=== PATIENT | male | born 1945 | race Caucasian/White ===

== ENCOUNTER 2021-07-13 03:25 | Emergency (ER) | payer OTHER ==
[~2021-07-13] VITALS: Ht 170.2 cm; Wt 83.0 kg
[2021-07-13 04:38] LABS: ABSOLUTE NEUTROPHILS 4.5 thou/uL (1.4-8.2); BASOPHILS 1.2 % (0.0-2.0); EOSINOPHILS 5.7 % (0.0-3.0); HEMATOCRIT 40.5 % (42.0-52.0); HEMOGLOBIN 13.5 gm/dL (14.0-18.0); LYMPHOCYTES 19.6 % (24.0-44.0); MCH 29.2 pg (26.0-34.0); MCHC 33.3 g/dL (28.0-37.0); MCV 87.7 fL (80.0-100.0); MONOCYTES 6.2 % (1.0-8.0); PLATELET COUNT 193 thou/uL (150-400); POLYS 67.3 % (36.0-66.0); RBC 4.62 mil/uL (4.50-6.00); RDW 13.8 % (10.5-14.5); WBC 6.6 thou/uL (4.0-11.0)
[2021-07-13 05:00] LABS: CALCIUM 9.3 mg/dL (8.5-10.1); CREATININE 0.8 mg/dL (0.7-1.3)
[2021-07-13 05:04] LABS: POTASSIUM 4.1 mmol/L (3.5-5.1)
[2021-07-13 05:38] VITALS: BP 144/84
--- NOTE | 2021-07-13 09:49 | EKG ---
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 : 1945 Requested By: Delmar Atkins Order Number: [id number] MD: Eric Boyer Measurements Intervals Harmon Rate: 54 P: 24 WV: 210 QRS: -14 QRSD: 99 T: 5 QT: 460 QTc: 436 Interpretive Statements Sinus bradycardia Abnormal R-wave progression, early transition Borderline T abnormalities, inferior leads Compared to ECG 07/20/2000 23:59:13 No significant change was found Electronically Signed On 07-13-2021 9:49:50 LOKIE ENGINEER by Eric Boyer [email or web address] <ELECTRONICALLY SIGNED> By: Eric Boyer MD, [facility] 07/13/21 0949 [id number] Eric Boyer MD, FACC /EPI
== END 2021-07-13 05:35 | disposition short-term general hospital (02) ==
LOC: ER 03:25
PROVIDERS: Student in an Organized Health Care Education/Training Program
DX: S06.5X0A Traumatic subdural hemorrhage without loss of consciousness, initial encounter (principal); Z20.822 Contact with and (suspected) exposure to COVID-19; S00.03XA Contusion of scalp, initial encounter; R55 Syncope and collapse; Z88.0 Allergy status to penicillin; W18.11XA Fall from or off toilet without subsequent striking against object, initial encounter; Y93.89 Activity, other specified; Y92.89 Other specified places as the place of occurrence of the external cause; Y99.8 Other external cause status

== ENCOUNTER 2021-09-01 23:32 | Inpatient (IN) | payer OTHER ==
[~2021-09-01] VITALS: Ht 170.2 cm; Wt 71.7 kg
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
[2021-09-01 23:35] VITALS: BP 172/74
[2021-09-02 03:28] LABS: ABSOLUTE NEUTROPHILS 7.3 thou/uL (1.4-8.2); BASOPHILS 0.7 % (0.0-2.0); EOSINOPHILS 2.6 % (0.0-3.0); HEMATOCRIT 40.2 % (42.0-52.0); HEMOGLOBIN 13.5 gm/dL (14.0-18.0); LYMPHOCYTES 15.6 % (24.0-44.0); MCH 29.2 pg (26.0-34.0); MCHC 33.5 g/dL (28.0-37.0); MCV 87.1 fL (80.0-100.0); MONOCYTES 6.3 % (1.0-8.0); PLATELET COUNT 165 thou/uL (150-400); POLYS 74.8 % (36.0-66.0); RBC 4.62 mil/uL (4.50-6.00); RDW 14.6 % (10.5-14.5); WBC 9.7 thou/uL (4.0-11.0)
[2021-09-02 03:35] LABS: CALCIUM 9.1 mg/dL (8.5-10.1); CREATININE 0.9 mg/dL (0.7-1.3); POTASSIUM 3.7 mmol/L (3.5-5.1)
[2021-09-02 03:43] LABS: APTT 28.7 Seconds (24.5-32.8); INR 1.09; PROTIME 11.8 Seconds (10.5-12.1)
[2021-09-02] MEDS ORDERED: BACLOFEN 10MG T10 MG PO ×2 (09:57→09:59)
[2021-09-02] MEDS ORDERED: COLACE100 MG PO (10:01)
[2021-09-02] MEDS ORDERED: DULOXETINE HCL30 MG PO (10:02)
[2021-09-02] MEDS ORDERED: FAMOTIDINE 20 M20 MG PO (10:03)
[2021-09-02] MEDS ORDERED: SLOW FE142 MG PO (10:05)
[2021-09-02] MEDS ORDERED: HYDROCODON-ACE1 EAC7 PO (10:07)
[2021-09-02] MEDS ORDERED: KEPPRA750 MG PO (10:17)
[2021-09-02] MEDS ORDERED: REFRESH CLASSI1 EACH LT. EYE (10:41)
[2021-09-02] MEDS ORDERED: PREGABALIN75 MG PO (10:42)
[2021-09-02] MEDS ORDERED: REFRESH LACRI-3.5 GM LT. EYE (10:44)
[2021-09-02] MEDS ORDERED: MIRALAX119 GM PO (10:50)
[2021-09-02] MEDS ORDERED: SUPER THERAVIT1 EACH PO (10:51)
[2021-09-02 11:30] VITALS: BP 112/70
[2021-09-02 14:01] LABS: FOLIC ACID 19.1 ng/mL (8.6-58.9)
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
[2021-09-02 16:20] VITALS: BP 119/65
[2021-09-02 21:19] VITALS: BP 116/80
[2021-09-02 22:09] VITALS: BP 137/81
[2021-09-02] MEDS ORDERED: ACETAMINOPHEN500 M1 (22:19)
[2021-09-02] MEDS ORDERED: HYDROCORTISONE30 GM TOP (22:21)
[2021-09-02] MEDS ORDERED: ACIDOPHILUS LA1 EAC1 PO (22:23)
[2021-09-02] MEDS ORDERED: OXYCODONE HCL5 M1 (22:26)
[2021-09-03 03:02] VITALS: BP 116/69
--- NOTE | 2021-09-03 03:46 | NUR ---
PT ARRIVED VIA CART FROM ER. PT HAS RECENT FALL HX AND PREVIOUS VISITS TO ER DUE TO FALLS. ADMISSION COMPLETED, MED REC FINISHED, AND CAREPLAN IN PLACE. PT HAS LACERATION ABOVE LEFT EYE WITH SUTURES. PAIN MANAGEMENT WAS POC FOR EVENING.
[2021-09-03 04:31] LABS: ABSOLUTE NEUTROPHILS 3.5 thou/uL (1.4-8.2); BASOPHILS 0.6 % (0.0-2.0); EOSINOPHILS 4.9 % (0.0-3.0); HEMATOCRIT 36.9 % (42.0-52.0); HEMOGLOBIN 12.4 gm/dL (14.0-18.0); LYMPHOCYTES 29.2 % (24.0-44.0); MCH 29.5 pg (26.0-34.0); MCHC 33.7 g/dL (28.0-37.0); MCV 87.8 fL (80.0-100.0); MONOCYTES 8.3 % (1.0-8.0); PLATELET COUNT 150 thou/uL (150-400); RDW 14.8 % (10.5-14.5); WBC 6.1 thou/uL (4.0-11.0)
[2021-09-03 07:00] VITALS: BP 117/71
[2021-09-03 07:22] LABS: CALCIUM 8.3 mg/dL (8.5-10.1); CREATININE 0.8 mg/dL (0.7-1.3); POTASSIUM 3.9 mmol/L (3.5-5.1)
[2021-09-03 11:00] VITALS: BP 86/60
[2021-09-03 15:00] VITALS: BP 99/56
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
--- NOTE | 2021-09-03 16:20 | NUR ---
I have reviewed the documentation by DASIA KING from 09/03/21 to 09/03/21 and I concur with it. AMBROSE SANTOS, PT, DPT
[2021-09-03 20:22] VITALS: BP 110/61
[2021-09-04 03:35] VITALS: BP 106/58
--- NOTE | 2021-09-04 04:41 | NUR ---
PT IS A&OX4 AND ABLE TO COMMUNICATE WANTS AND NEEDS TO STAFF. ADAPTIVE CALL LIGHT IN PLACE R/T LIMITED MOBILITY-PT HAS HX OF TBI. PT REQUESTED EXTERNAL CATHETER PLACEMENT AT BEGINNING OF SHIFT, INTACT AND DRAINING THROUGHOUT SHIFT. PT WITH C/O R SIDED BACK/RIB PAIN, MEDICATED X1 WITH NORCO AND X1 WITH DILAUDID WITH GOOD RESULTS EACH TIME. PT ON CONTINUOUS PULSE OXIMETRY, NOTED TO DESAT TO 86-88% DURING DEEP SLEEP. NASAL CANNULA PLACED AT 2L, MAINTAINING SATS >92% SINCE. VSS THROUGHOUT SHIFT OTHERWISE. WILL CONTINUE TO OBSERVE FOR CHANGES
[2021-09-04 04:52] LABS: CALCIUM 8.9 mg/dL (8.5-10.1); CREATININE 0.9 mg/dL (0.7-1.3); POTASSIUM 3.9 mmol/L (3.5-5.1)
[2021-09-04 05:25] LABS: BASOPHILS 0.6 % (0.0-2.0); EOSINOPHILS 6.1 % (0.0-3.0); HEMOGLOBIN 13.2 gm/dL (14.0-18.0); LYMPHOCYTES 28.1 % (24.0-44.0); MONOCYTES 8.6 % (1.0-8.0); PLATELET COUNT 139 thou/uL (150-400); POLYS 56.6 % (36.0-66.0); RBC 4.54 mil/uL (4.50-6.00); RDW 14.6 % (10.5-14.5); WBC 7.1 thou/uL (4.0-11.0)
[2021-09-04 09:02] VITALS: BP 105/63
[2021-09-04] MEDS ORDERED: PREDNISOLONE ACE5 ML LT. EYE (11:49)
[2021-09-04] MEDS ORDERED: ARTIFICIAL TEAR1510 OPHTHALMIC (11:49)
[2021-09-04 12:33] VITALS: BP 103/58
--- NOTE | 2021-09-04 14:24 | NUR ---
I have reviewed the documentation by LORNA NELSON from 09/04/2021 to 09/04/21 and I concur with it. FREDDIE PRECIADO PT, DPT
[2021-09-04 16:00] VITALS: BP 118/73
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
--- NOTE | 2021-09-04 17:19 | NUR ---
Assumed care of pt at 0700. Pt reporting severe pain in R side where hip fractures are present. Also reporting chronic back pain. PO and IV pain medications given as needed, providing partial relief. Pt on continuous pulse oximetry on 2L nasal cannula. Lungs are clear and diminished. Difficult for patient to take deep breaths due to pain. Patient telemetry reads as 1st degree AV block/sinus bradycardia at times, especially when sleeping. Meds given per MAR, including eye drops. No concerns at this time.
[2021-09-04 20:45] VITALS: BP 134/79
[2021-09-05 04:45] VITALS: BP 119/76
[2021-09-05 07:16] VITALS: BP 107/70
--- NOTE | 2021-09-05 12:21 | NUR ---
Case discussed with the care team. Acute rehab declined pt recommending snf. BOP SNF can accept. No dc anticipated until early next week. Pt and his sister notified and agreeable to bop snf at [place].
--- NOTE | 2021-09-05 14:51 | NUR ---
Assumed care of pt this AM. Pt is oriented x4, drowsy. SR w/ 1AVB on the montir. Pt on 2L NC. Pt c/o 04/20 right side pain associated w/ rib fx. Dilaudid held as pt RR low this AM & pt reporting "difficulty breathing". PRN hydrocodone given as allowed. Multiple issues w/ condom cath today, pt up to toilet x 2 w/ walker. Min assistance but pt guidance through room. High fall precautions in place, pt calls appropriately.
--- NOTE | 2021-09-05 15:18 | NUR ---
I have reviewed the documentation by LORNA NELSON from 09/05/21 to 09/05/21 and I concur with it. DEMETRA SHELTON
[2021-09-05 15:23] VITALS: BP 120/77
[2021-09-05 19:25] VITALS: BP 133/74
[2021-09-06 03:08] VITALS: BP 117/77
--- NOTE | 2021-09-06 05:51 | NUR ---
PT CONTINUES TO MAKE SLOW PROGRESS TOWARD GOAL OF DISCHARGE. PLAN AT THIS TIME IS TO D/C TO [facility] EARLY NEXT WEEK FOR SKILLED REHAB. PT IS A&OX4 BUT FORGETFUL AND SOMETIMES SLOW TO RESPOND. VS HAVE BEEN STABLE THROUGHOUT THE SHIFT. HE CALLS APPROPRIATELY USING SOFT TOUCH ADAPTIVE CALL LIGHT TO GO TO THE BATHROOM; UP WITH GAIT BELT, WALKER, AND ASSIST X1. AT REST, PT DENIES PAIN, BUT ENDORSES RIGHT BACK/RIB PAIN WITH ANY MOVEMENT. SINUS BRADYCARDIA ON CARDIAC MONITORING. WILL CONTINUE TO MONITOR FOR CHANGES
[2021-09-06 07:00] VITALS: BP 122/75
[2021-09-06 16:45] VITALS: BP 127/78
[2021-09-06 19:04] VITALS: BP 110/71
[2021-09-07 03:28] VITALS: BP 122/88
--- NOTE | 2021-09-07 04:26 | NUR ---
RECIEVED THE PATIENT AT 1900H.ASSESSMEN TDONE CHARTED.MEDS GIVEN PER SEP.CALL APPROPRIATELY USING SOFT TOUCH ADAPTIVE CALL LIGHT.ALL NEEDS ATTENDED.TO CONTINOUSLY MONITOR.
[2021-09-07 07:25] VITALS: BP 126/74
[2021-09-07 15:20] VITALS: BP 100/65
[2021-09-07 19:40] VITALS: BP 108/58
[2021-09-08 03:27] VITALS: BP 123/68
--- NOTE | 2021-09-08 03:34 | NUR ---
RECEIVED THE PATIENT AT 1900H.ASSESSMENT DONE CHARTED.MEDS GIVEN PER SEP.CALLS APPROPRIATELY USING SOFT ADAPTIVE CALL LIGHT.ALL NEEDS ATTENDED.TO CONTINOUSLY MONITOR.
[2021-09-08 07:15] VITALS: BP 168/62
[2021-09-08] MEDS ORDERED: IPRAT-ALBUT 0.5-3 ML INH (13:00)
[2021-09-08] MEDS ORDERED: NYAMYC15 GM TOP (13:00)
[2021-09-08] MEDS ORDERED: LIDOCAINE1 EACH TRANSDERM (13:02)
[2021-09-08] MEDS ORDERED: MIRALAX119 GM PO (13:02)
--- NOTE | 2021-09-08 14:44 | NUR ---
CHART REVIEWED AND DISCUSSED WITH CARE TEAM. PT MEDICALLY STABLE TO DC THIS DAY. CM CALLED AND SPOKE TO BLAINE HUNTER AT [place] [facility] . SHE CONFIRMED BED AVAILABLE THIS DAY AND ARRANGED TRANSPORT VIA W/C VAN FOR 1500. CM FAXED DC ORDERS AND SUMMARY TO BLAINE. NURSING AWARE. CHART COPIED. CM CALLED AND SPOKE TO PTS SISTER KISHORE AND MADE AWARE OF PT DC AND TRANSFER. NO FUTHER CM INTERVENTIONS INDICATED.
--- NOTE | 2021-09-08 15:54 | NUR ---
PT LEFT VIA WHEELCHAIR VAN AT 1550 THIS AFTERNOON. ALL PT BELONGINGS WERE VERIFIED WITH THE PT, PLACED IN BELONGING BAGS AND SENT WITH PT. PT LEFT ON 2L O2 AND IN PLEASANT DEMEANOR, THANKFUL FOR THE CARE HE HAS RECEIVED HERE.
--- NOTE | 2021-09-08 17:07 | NUR ---
I have reviewed the documentation by DASIA KING from 09/08/21 to 09/08/21 and I concur with it. AMBROSE SANTOS, PT, DPT
== END 2021-09-08 16:03 | DRG 184 ==
LOC: ER 23:32 → EROBS 09-02 05:48 → 2N 09-02 05:48
PROVIDERS: Emergency Medicine; Nurse Practitioner; Surgery; ADMIT Surgery; ATTEND Surgery
DX: S22.41XA Multiple fractures of ribs, right side, initial encounter for closed fracture (principal); J94.2 Hemothorax; J98.11 Atelectasis; Z88.0 Allergy status to penicillin; K80.20 Calculus of gallbladder without cholecystitis without obstruction; Z87.820 Personal history of traumatic brain injury; E11.9 Type 2 diabetes mellitus without complications; K21.9 Gastro-esophageal reflux disease without esophagitis; Z20.822 Contact with and (suspected) exposure to COVID-19; W18.39XA Other fall on same level, initial encounter; Y93.89 Activity, other specified; Y92.89 Other specified places as the place of occurrence of the external cause; Y99.8 Other external cause status; Z79.899 Other long term (current) drug therapy; E78.5 Hyperlipidemia, unspecified; R13.10 Dysphagia, unspecified; S01.81XA Laceration without foreign body of other part of head, initial encounter
CPT/HCPCS: 10081